=== PATIENT | female | born 2000 | race Caucasian/White ===

== ENCOUNTER 2020-10-28 16:49 | Emergency (ER) | payer BC, OTHER ==
[~2020-10-28] VITALS: Ht 167.6 cm; Wt 92.9 kg
[2020-10-28 17:01] VITALS: BP 126/75
[2020-10-28] MEDS ORDERED: NEOMY/BACITR/POLYMYXIN OINT PACKET. TP ONE (17:15)
[2020-10-28] MEDS ORDERED: LIDOCAINE 1%/EPI 1:100,000 20 ML VIAL. IJ ONE (17:15)
--- NOTE | 2020-10-28 17:31 | PHYS DOC ---
Past History Past Medical History: Other Additional Past Medical Histor: PCOS Past Surgical History: No Surgical History Smoking: Non-smoker Alcohol Use: Rarely Drug Use: Marijuana General Adult EDM: Chief Complaint: LACERATION/AVULSION HPI: HPI: 19-year-old female presents with report of laceration to left thumb after trying to cut a frozen peach for a smoothie with a serrated knife. Patient reports the peach turned when she tried to cut it causing her to cut herself. Patient reports last tetanus booster was less than 5 years ago. Denies . Review of Systems: Review of Systems: Constitutional: Denies fever or chills Musculoskeletal: Reports left thumb pain at site of laceration Integument: Reports left thumb laceration Neurologic: Denies headache, focal weakness or sensory changes Complete systems were reviewed and found to be within normal limits, except as documented in this note. Current Medications: Current Meds: Current Medications Medications (Trade) Dose Ordered Sig/Shakira Start Time Stop Time Status Last Admin Dose Admin Lidocaine/ Epinephrine (Xylocaine 1%-Epi 1:100,000) 20 ml 1X ONCE 10/28/20 17:15 10/28/20 17:16 DC 10/28/20 17:15 20 ML Neomycin/ Polymyxin/ Bacitracin (Triple Antibiotic Ointment) 1 pkt 1X ONCE 10/28/20 17:15 10/28/20 17:16 DC 10/28/20 17:15 1 PKT Allergies: Allergies: Allergies Coded Allergies Type Severity Reaction Last Updated Verified No Known Drug Allergies 10/28/20 No Physical Exam: PE: Constitutional: Well developed, well nourished, no acute distress, non-toxic appearance HENT: Normocephalic, atraumatic Eyes: Conjunctiva normal, no discharge Neck: Normal range of motion, supple Lungs & Thorax: No respiratory distress, equal chest rise and fall Skin: Warm, dry, no erythema, 3 cm flap laceration to medial palmar surface of left thumb not involving nail Extremities: No deformity, left thumb with full range of motion, cap refill less than 2 seconds, left radial pulse +2 Neurologic: Alert and oriented X 3, no focal deficits noted Psychologic: Affect normal, judgment normal Current Patient Data: Vital Signs: Vital Signs Date Time Temp Pulse Resp B/P (MAP) Pulse Ox O2 Delivery O2 Flow Rate FiO2 10/28/20 17:01 98.2 94 16 126/75 (92) 96 Room Air EKG: EKG: [] Radiology/Procedures: Radiology/Procedures: [] Heart Score: C/O Chest Pain: N/A Course & Med Decision Making: Course & Med Decision Making Patient presents with laceration to left thumb. Finger with full range of mo tion. Patient reports tetanus up-to-date. Digital block performed. Laceration repaired and dressed. Patient stable for discharge with outpatient follow-up with PCP. Discussed findings and plan with patient, who acknowledges understanding and agreement. Dragon Disclaimer: Dragon Disclaimer: This electronic medical record was generated, in whole or in part, using a voice recognition dictation system. Laceration/Wound Repair Laceration/Wound Repair : Wound Location: upper extremity (left thumb) Wound's Depth, Shape: superficial, flap Wound Length (cm): 3 Wound Explored: clean Irrigated w/ Saline (ccs): 200 Betadine Prep?: Yes Anesthesia: Lidocaine w/ Epi (1%) Volume Anesthetic (ccs): 2 Wound Debrided: minimal Wound Repaired With: sutures Suture Size/Type: 5:0, nylon Number of Sutures: 7 Sterile Dressing Applied?: Yes Progress Verbal consent obtained. Time out performed. Hand hygiene utilized. Wound cleaned with ChloraPrep. Anesthesia obtained via 4 nerve digital block via a 25- gauge hypodermic needle with total infiltration of (2) mL's of lidocaine 1% with epinephrine with appropriate anesthesia obtained. Copious irrigation performed. Wound well approximated with 5-0 Nylon simple interrupted sutures x 7. Patient tolerated procedure well and without difficulty. Empiric antibiotic ointment applied prior to sterile dressing. Departure Departure: Impression: Primary Impression: Laceration of thumb Qualified Codes: S61.012A - Laceration without foreign body of left thumb without damage to nail, initial encounter Disposition: HOME / SELF CARE / HOMELESS Condition: STABLE Referrals: IMMANUEL ROA MD (PCP) Patient Instructions: Laceration Care, Adult, [id number] Additional Instructions: Do not soak your wound. You may shower. Clean wound daily with soap and water. Change dressing 2 times daily. Use over the counter antibiotic ointment with each dressing change. Sutures need to be removed in 10 days. Present to your family doctor or local urgent care for removal. You may also present to the ED but it will be an additional visit/charge. SAMIA JIMENEZ DO October 28, 2020 17:31
== END 2020-10-28 18:08 | disposition home or self-care (01) ==
LOC: ER 16:49
DX: S61.012A Laceration without foreign body of left thumb without damage to nail, initial encounter (principal); W26.0XXA Contact with knife, initial encounter; Y93.89 Activity, other specified; Y92.89 Other specified places as the place of occurrence of the external cause; Y99.8 Other external cause status
CPT/HCPCS: 12002; 99282